=== PATIENT | female | born 1955 | race American Indian/Alaskan Native ===

== ENCOUNTER 2018-02-19 17:25 | Emergency (ER) | payer OTHER ==
[2018-02-19 17:47] VITALS: BP 169/68
[2018-02-19] MEDS ORDERED: MOTRIN PO ONE (18:21)
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
== END 2018-02-19 18:52 | disposition home or self-care (01) ==
LOC: ED 17:25
DX: S13.4XXA Sprain of ligaments of cervical spine, initial encounter (principal); S39.012A Strain of muscle, fascia and tendon of lower back, initial encounter; I10 Essential (primary) hypertension; I25.2 Old myocardial infarction; V89.2XXA Person injured in unspecified motor-vehicle accident, traffic, initial encounter; Y93.89 Activity, other specified; Y92.89 Other specified places as the place of occurrence of the external cause; Y99.8 Other external cause status
CPT/HCPCS: 99282

== ENCOUNTER 2018-04-18 16:16 | Emergency (ER) | payer OTHER ==
[2018-04-18 16:57] LABS: Basophils # (Auto) 0.1 K/mm3 (0.0-0.1); Basophils % (Auto) 0.8 % (0.0-1.8); Calcium 9.1 mg/dL (8.4-10.2); Eosinophils # (Auto) 0.3 K/mm3 (0.0-0.4); Hematocrit 29.9 % (30.3-42.9); Hemoglobin 9.8 gm/dl (10.1-14.3); Lymphocytes # (Auto) 1.1 K/mm3 (1.2-5.4); Lymphocytes % (Auto) 11.8 % (13.4-35.0); Mean Corpuscular HGB Conc 33 % (30-34); Mean Corpuscular Hemoglobin 28 pg (28-32); Mean Corpuscular Volume 86 fl (79-97); Monocytes # (Auto) 0.7 K/mm3 (0.0-0.8); Platelet Count 453 K/mm3 (140-440); Red Blood Count 3.48 M/mm3 (3.65-5.03); Red Cell Distribution Width 16.6 % (13.2-15.2)
[2018-04-18 17:27] LABS: Bilirubin,Urine NEG (Negative); Blood,Urine NEG (Negative); Color,Urine Yellow (Yellow); Protein,Urine <15 mg/dL mg/dL (Negative); Urobilinogen,Urine < 2.0 mg/dL (<2.0)
--- NOTE | 2018-04-18 17:45 | Emergency Department Report ---
ED General Adult HPI - General Chief complaint: Hyperglycemia Stated complaint: HIGH BLOOD SUGAR Time Seen by Provider: 04/18/18 17:44 Source: patient Mode of arrival: Ambulatory Limitations: No Limitations - History of Present Illness -: Gradual Consistency: constant Improves with: none Worsens with: none Associated Symptoms: denies other symptoms Treatments Prior to Arrival: none - Related Data Previous Rx's Medication Instructions Recorded Last Taken Type Cyclobenzaprine [Flexeril] 10 mg PO QHS PRN #7 tablet 02/19/18 Unknown Rx Ibuprofen [Motrin] 600 mg PO Q8H PRN #30 tablet 02/19/18 Unknown Rx metFORMIN [Glucophage] 850 mg PO BID #60 tablet 04/18/18 Unknown Rx Allergies Allergy/AdvReac Type Severity Reaction Status Date / Time No Known Allergies Allergy Verified 02/19/18 17:42 ED Review of Systems ROS: Stated complaint: HIGH BLOOD SUGAR Other details as noted in HPI Comment: All other systems reviewed and negative Constitutional: denies: chills, fever Eyes: denies: vision change ENT: denies: ear pain, dental pain Respiratory: cough. denies: shortness of breath Cardiovascular: denies: chest pain, palpitations, edema Endocrine: increased hunger, increased thirst Gastrointestinal: denies: abdominal pain, nausea, vomiting, diarrhea Genitourinary: denies: urgency, frequency Musculoskeletal: denies: back pain, joint swelling Skin: denies: rash, change in color Neurological: denies: headache, weakness, numbness, paresthesias Psychiatric: denies: anxiety, depression Hematological/Lymphatic: denies: easy bleeding, easy bruising ED Past Medical Hx - Past Medical History Previous Medical History?: Yes Hx Hypertension: Yes Hx Heart Attack/AMI: Yes (1989) Hx of Cancer: Yes (LEFT BREAST) - Surgical History Past Surgical History?: Yes Hx Breast Surgery: Yes (LEFT SIDE LUMPECTOMY) Additional Surgical History: PARATHYROID - Social History Smoking Status: Former Smoker Substance Use Type: Alcohol, Prescribed - Medications Home Medications: Home Medications Medication Instructions Recorded Confirmed Last Taken Type Cyclobenzaprine [Flexeril] 10 mg PO QHS PRN #7 tablet 02/19/18 Unknown Rx Ibuprofen [Motrin] 600 mg PO Q8H PRN #30 tablet 02/19/18 Unknown Rx metFORMIN [Glucophage] 850 mg PO BID #60 tablet 04/18/18 Unknown Rx ED Physical Exam - General Limitations: No Limitations General appearance: alert - Head Head exam: Absent: atraumatic, normocephalic, normal inspection - Eye Eye exam: Absent: normal appearance, PERRL, EOMI Pupils: Absent: normal accommodation - ENT ENT exam: Present: normal exam, normal orophraynx, mucous membranes dry - Neck Neck exam: Present: normal inspection, full ROM. Absent: tenderness - Respiratory Respiratory exam: Present: normal lung sounds bilaterally. Absent: respiratory distress, wheezes, rales, rhonchi - Cardiovascular Cardiovascular Exam: Present: regular rate, normal rhythm, normal heart sounds - GI/Abdominal GI/Abdominal exam: Present: soft, normal bowel sounds. Absent: distended, tenderness, guarding, rebound - Extremities Exam Extremities exam: Present: normal inspection, full ROM, normal capillary refill - Back Exam Back exam: Present: normal inspection, full ROM. Absent: tenderness - Neurological Exam Neurological exam: Present: alert, oriented X3, CN II-XII intact - Psychiatric Psychiatric exam: Present: normal affect, normal mood, flat affect - Skin Skin exam: Present: warm, dry, intact, normal color ED Course Vital Signs 04/18/18 16:26 Temperature 97.7 F Pulse Rate 95 H Respiratory 20 Rate Blood Pressure 191/95 O2 Sat by Pulse 100 Oximetry ED Medical Decision Making - Lab Data Result diagrams: 04/18/18 16:34 04/18/18 16:34 - Radiology Data Radiology results: report reviewed, image reviewed - Medical Decision Making Uncontrolled Diabetes. Hyperglycemia. Critical care attestation.: If time is entered above; I have spent that time in minutes in the direct care of this critically ill patient, excluding procedure time. ED Disposition Clinical Impression: Hyperglycemia due to type 2 diabetes mellitus Qualifiers: Diabetes mellitus long term care pharmacist insulin use: unspecified long term care pharmacist insulin use status Qualified Code(s): E11.65 - Type 2 diabetes mellitus with hyperglycemia Disposition: - TO HOME OR SELFCARE Is pt being admited?: No Does the pt Need Aspirin: No Condition: Stable Instructions: Diabetes Mellitus Type 2 in Adults (ED) Additional Instructions: Please follow up with her primary doctor tomorrow morning. Return to the ED if your condition worsens. Prescriptions: metFORMIN [Glucophage] 850 mg PO BID #60 tablet Time of Disposition: 21:11
[2018-04-18] MEDS ORDERED: NACL 0.9% 1000 ML 1,000 ML IV ONE ×2 (17:59)
[2018-04-18] MEDS ORDERED: HumuLIN R IV ONE (17:59)
--- NOTE | 2018-04-18 21:00 | XRay Report ---
FINAL REPORT EXAM: XR CHEST 1V AP HISTORY: cough TECHNIQUE: Single, portable chest x-ray. PRIORS: None. FINDINGS: Cardiac and mediastinal silhouette within normal limits. Lungs are normally expanded, without significant vascular congestion. No focal consolidation or apparent pneumothorax. Bony thorax grossly unremarkable. Metallic densities or clips project over the left inferolateral hemithorax may be postsurgical versus artifact. IMPRESSION: 1. No acute consolidation.
[2018-04-18 21:14] VITALS: BP 168/81
== END 2018-04-18 22:16 | disposition home or self-care (01) ==
LOC: ED 16:16
DX: E11.65 Type 2 diabetes mellitus with hyperglycemia (principal); I10 Essential (primary) hypertension; I25.2 Old myocardial infarction; Z79.84 Long term (current) use of oral hypoglycemic drugs; Z87.891 Personal history of nicotine dependence
CPT/HCPCS: 36415; 71045; 80048; 81001; 82805; 82962; 83880; 84484; 85025; 96361; 96374; 99284; J7030; J1815